=== PATIENT | male | born 1960 ===

== ENCOUNTER 2025-02-05 23:56 | Emergency (ER) | payer OTHER ==
[~2025-02-05] VITALS: Ht 177.8 cm; Wt 78.9 kg
[2025-02-06] MEDS ORDERED: Oxymetazoline 0.05% Nasal Relief Spray 15mL BTL ONE (00:20)
[2025-02-06] MEDS ORDERED: Tranexamic Acid 1000 MG/10 ML 10ML Vial (SDV) INH ONE (00:20)
== END 2025-02-06 01:00 | disposition home or self-care (01) ==
LOC: ER 23:56
DX: R04.0 Epistaxis (principal); I10 Essential (primary) hypertension
CPT/HCPCS: 30901; 99283-25; A9270